=== PATIENT | male | born 1980 | race Caucasian/White ===

== ENCOUNTER → 2017-10-14 | Emergency (ER) | payer OTHER ==
[~2017-10-14] VITALS: Ht 172.7 cm; Wt 86.2 kg
[~2017-10-14] MED LIST: IBUPROFEN200 M1 PO; NAPROXEN250 MG PO; NORCO 5-325 TA1 EACH PO
--- OUTSIDE RECORDS SUMMARY | ~2017-10-14 | XMS | Clinical Summary ---
Demographics + + + | Address | [address] | | | [address] | | | [place] [address] | + + + | Home Phone | | + + + | Preferred Language | Unknown | + + + | Marital Status | Single | + + + | Presybeterian Affiliation | Unknown | + + + | Race | Unknown | + + + | Ethnic Group | Unknown | + + + Author + + + | Author | [facility] [facility] | + + + | Organization | [facility] [employer] [facility] | + + + | Address | Unknown | + + + | Phone | Unavailable | + + + Support + + +---------+ + | Name | Relationship | Address | Phone | + + +---------+ + | Almas Heller | ECON | Unknown | | + + +---------+ + Care Team Providers + +------+ + | Care Pharmaceutical Compounding Supervisor Name | Role | Phone | + [...]
--- OUTSIDE RECORDS SUMMARY | ~2017-10-14 | XMS | Clinical Summary ---
Demographics + + + | Address | [address] | | | [address] | | | [place] [address] | + + + | Home Phone | | + + + | Preferred Language | Unknown | + + + | Marital Status | Single | + + + | Episcopal Affiliation | Unknown | + + + | Race | Unknown | + + + | Ethnic Group | Unknown | + + + Author + + + | Author | [email or web address] [facility] | + + + | Organization | [email or web address] [facility] | + + + | Address | Unknown | + + + | Phone | Unavailable | + + + Support + + +---------+ + | Name | Relationship | Address | Phone | + + +---------+ + | Almas Heller | ECON | Unknown | | + + +---------+ + Care Team Providers + +------+ + | Care Shot Bagger Name | Role | Phone | + [...]
== END | disposition home or self-care (01) ==
LOC: ED 21:18
PROC: 2W3EX1Z Immobilization of Right Hand using Splint (ICD-10-PCS; principal; 2017-10-14)
DX: S62.314A Displaced fracture of base of fourth metacarpal bone, right hand, initial encounter for closed fracture (principal); F17.200 Nicotine dependence, unspecified, uncomplicated; Z87.81 Personal history of (healed) traumatic fracture; W20.8XXA Other cause of strike by thrown, projected or falling object, initial encounter; Y92.009 Unspecified place in unspecified non-institutional (private) residence as the place of occurrence of the external cause
CPT/HCPCS: 29125; 73130; 99283

== ENCOUNTER 2017-10-22 09:50 | Day surgery (SDC) | payer OTHER ==
[~2017-10-22] VITALS: Ht 182.9 cm; Wt 90.7 kg
--- NOTE | 2017-10-22 12:54 | NUR ---
10/22/17 1254 Marissa Ricci 1236 PT ARRIVED IN PACU SLEEPY WITH NO C/O'S. ICE TO TOP OF R HAND.
--- NOTE | 2017-10-22 13:31 | NUR ---
LE 1315: PT ARRIVE TO DS RM 5 VIA STRETCHER WITH EYES CLOSED. PT EASILY AROUSED WHEN SPOKEN TO AND DENIES AND NAUSEA OR PAIN. PT STATES "MY ARM AND HEAD FEEL REALLY HEAVY." PT TRYING TO MOVE RIGHT ARM AND ADVISED TO KEEP ARM STILL WITH ICE IN PLACE UNTIL BLOCK WEARS OFF. PT REQUESTS TO USE BR. PT AMBULATES WELL AND VOIDS 400 MLS DILUTE YELLOW URINE. PT BACK TO ROOM SITTING UPRIGHT, EATING PUDDING AND CRACKERS. PT SIG OTHER IN ROOM AT BEDSIDE. CALL LIGHT AT PT LEFT SIDE.
--- NOTE | 2017-10-22 14:33 | NUR ---
PT TO BR. VERY IN A HURRY KEPT SAYING COME ON COME ON WHEN DC INSTRUCTIONS BEING GIVEN. DIDNT WANT TO RIDE IN WC. DIDNT WANT TO WANT TILL S O PULLED CAR UP.
--- NOTE | 2017-10-22 16:02 | OR ---
[facility] [address] [place] [place] [address] Signed DATE OF OPERATION: 10/22/2017 SURGEON: Elieser De Oliveira MD PREOPERATIVE DIAGNOSIS: Fracture dislocation, right 4th and 5th proximal metacarpals. POSTOPERATIVE DIAGNOSIS: Fracture dislocation, right 4th and 5th proximal metacarpals. PROCEDURE PERFORMED: Closed reduction and percutaneous pinning, right 4th and 5th proximal metacarpals. DREDGE PIPEMAN: ANESTHESIA: General. BLOOD LOSS: Minimal. IMPLANTS: Two 1.6 K-wires and one 1.25 K-wire. BRIEF HISTORY: Joseph is a 37-year-old gentleman who apparently hit a wall with his fist, fractured dislocating his proximal metacarpals. He presented to clinic. We discussed options. Because of the instability, he could actually reduce and dislocate these things on command. We decided to proceed with closed reduction and percutaneous pinning. The risks, benefits, and alternatives were discussed at length and he understood and wished to proceed. DESCRIPTION OF PROCEDURE: Once consent was obtained, he was taken to the operating room. After adequate anesthesia, he was placed on the operating table. All downside pressure points well padded. The right arm was prepped and draped in a standard sterile fashion. The 4th and 5th metacarpals were easy to reduce and were held in position. A single 1.6 mm K-wire was passed from the distal 5th metacarpal engaging the body of the carpus. Second was placed in the 4th in a parallel fashion. The third 1.25 K-wire was then Electronically Signed By: ELIESER DE OLIVEIRA MD 10/22/17 1602 PATIENT NAME: JOSEPH FLOYD OPERATIVE REPORT DATE OF : 80 REPORT #: [id number] PHYSICIAN: ELIESER DE OLIVEIRA MD PCP: CANDE LESTER HYDRODYNAMICS TEACHER REPORT IS CONFIDENTIAL AND NOT TO BE RELEASED WITHOUT AUTHORIZATION [facility] [address] [facility] [place] [address] Signed placed laterally from the 5th metacarpal engaging in the body of the carpus. Excellent stability was obtained at the end. The pins were cut and bent and dressed with sterile gauze and cast padding. He was placed in an ulnar gutter splint. He tolerated the procedure well. All sponge, needle, and instrument counts were correct. Elieser De Oliveira MD BA/REGINA /[id number] Copies: ~ Electronically Signed By: ELIESER DE OLIVEIRA MD 10/22/17 1602 PATIENT NAME: JOSEPH FLOYD OPERATIVE REPORT DATE OF : 80 REPORT #: [id number] PHYSICIAN: ELIESER DE OLIVEIRA MD PCP: CANDE LESTER REPORT IS CONFIDENTIAL AND NOT TO BE RELEASED WITHOUT AUTHORIZATION
--- NOTE | 2017-10-22 16:02 | OR ---
[facility] [address] [place] [address] Signed DATE OF OPERATION: 10/22/2017 SURGEON: Elieser De Oliveira MD PREOPERATIVE DIAGNOSIS: Fracture dislocation, right 4th and 5th proximal metacarpal. POSTOPERATIVE DIAGNOSIS: Fracture dislocation, right 4th and 5th proximal metacarpal. PROCEDURE PERFORMED: Closed reduction and percutaneous pinning, right 4th and 5th metacarpals. SALES TRADER: AVINASH Polanco. DICTATION ENDS HERE. Elieser De Oliveira MD BA/EMILIANOL /[id number] Copies: ~ Electronically Signed By: ELIESER DE OLIVEIRA MD 10/22/17 1602 PATIENT NAME: JAMAAL FLOYD OPERATIVE REPORT DATE OF : 80 REPORT #: [id number] PHYSICIAN: ELIESER DE OLIVEIRA MD PCP: CANDE LESTER REPORT IS CONFIDENTIAL AND NOT TO BE RELEASED WITHOUT AUTHORIZATION
== END 2017-10-22 18:00 | disposition home or self-care (01) ==
LOC: DS 09:50 → OPS 09:50 → DS 11:15 → OPS 18:00
PROVIDERS: Specialist
PROC: 0PSP34Z Reposition Right Metacarpal with Internal Fixation Device, Percutaneous Approach (ICD-10-PCS; 2017-10-22)
PROC: 0PSP34Z Reposition Right Metacarpal with Internal Fixation Device, Percutaneous Approach (ICD-10-PCS; principal; 2017-10-22 11:15)
DX: S62.314A Displaced fracture of base of fourth metacarpal bone, right hand, initial encounter for closed fracture (principal); S62.316A Displaced fracture of base of fifth metacarpal bone, right hand, initial encounter for closed fracture; F17.200 Nicotine dependence, unspecified, uncomplicated
CPT/HCPCS: 01830; 64417; 73120; 76942; J0690; J1100; J1885; J2250; J2405; J2704; J2795; J3475; J7120

== ENCOUNTER 2019-06-05 06:38 | Emergency (ER) | payer SELFPAY ==
[~2019-06-05] VITALS: Ht 185.4 cm; Wt 90.7 kg
--- OUTSIDE RECORDS SUMMARY | ~2019-06-05 | XMS | Clinical Summary ---
Demographics + + + | Address | [address] | | | [address] | | | [place] [address] | + + + | Home Phone | | + + + | Preferred Language | Unknown | + + + | Marital Status | Single | + + + | Hindu Affiliation | Unknown | + + + | Race | Unknown | + + + | Ethnic Group | Unknown | + + + Author + + + | Author | [facility] (Historical as of | | | 02-01-19) | + + + | Organization | [facility] (Historical as of | | | 02-01-19) | + + + | Address | Unknown | + + + | Phone | Unavailable | + + + Support + + +---------+ + | Name | Relationship | Address | Phone | + + +---------+ + | Almas Heller | ECON | Unknown | | + + +---------+ + Care Team Providers + +------+ + | Care Manager Agency Name | Role | Phone | + +------+ + | Blake Martinez MD | PP | | + +------+ + Allergies Not on File Current Medications Not on file Active Problems Not on file Social History + +-------+ +--------+------+ | Tobacco Use | Types | Packs/Day | Years | Date | | | | | Used | | + +-------+ +--------+------+ | Never Assessed | | | | | + +-------+ +--------+------+ + + + | Sex Assigned at | Date Recorded | | | | + + + | Not on file | | + + + Plan of Treatment Not on file Results Not on filefrom Last 3 Months"
--- OUTSIDE RECORDS SUMMARY | ~2019-06-05 | XMS | Clinical Summary ---
Demographics + + + | Address | [address] | | | [address] | | | [place] [address] | + + + | Home Phone | | + + + | Preferred Language | Unknown | + + + | Marital Status | Single | + + + | Pentecostal Affiliation | Unknown | + + + | Race | Unknown | + + + | Ethnic Group | Unknown | + + + Author + + + | Author | [facility] (Historical as of | | | 02-01-19) | + + + | Organization | [facility] (Historical as of | | | 02-01-19) [...] Team Providers + +------+ + | Care Crisis Intervention Specialist Name | Role | Phone | + [...]
--- OUTSIDE RECORDS SUMMARY | ~2019-06-05 | XMS | Clinical Summary ---
Demographics + + + | Address | [address] | | | [address] | | | [place] [address] | + + + | Home Phone | | + + + | Preferred Language | Unknown | + + + | Marital Status | Single | + + + | Latter-Day Affiliation | Unknown | + + + | Race | Unknown | + + + | Ethnic Group | Unknown | + + + Author + + + | Author | [facility] | | | and [place] | + + + | Organization | [facility] | | | and [place] | + + + | Address | Unknown | + + + | Phone | Unavailable | + + + Support + + +---------+ + | Name | Relationship | Address | Phone | + + +---------+ + | Almas Heller | ECON | Unknown | | + + +---------+ + Care Team Providers + +------+ + | Care Coat Room Attendant Name | Role | Phone | + +------+ + | Blake Martinez MD | PCP | | + +------+ + Allergies Not on File Medications Not on file Active Problems Not [...] on file | | + + + + + + + | Job Start Date | Occupation | Industry | + + + + | Not on file | Not on file | Not on file | + + + + + + + + | Travel History | Travel Start | Travel End | + + + + + + | No recent travel history available. | + + Last Filed Vital Signs Not on file Plan of Treatment + + + + + | Health Maintenance | Due Date | Last Done | Comments | + + + + + | Vaccine: | | | | | Dtap/Tdap/Td (1 - | 0 | | | | Tdap) | | | | + + + + + | Vaccine: Influenza | | | | | (#1) | 9 | | | + + + + + Results Not on filefrom Last 3 Months"
--- OUTSIDE RECORDS SUMMARY | ~2019-06-05 | XMS | Clinical Summary ---
Demographics + + + | Address | [address] | | | [address] | | | [place] [address] | + + + | Home Phone | | + + + | Preferred Language | Unknown | + + + | Marital Status | Single | + + + | Uatsdin Affiliation | Unknown | + + + | Race | Unknown | + + + | Ethnic Group | Unknown | + + + Author + + + | Author | [facility] | | | and [place] | + + + | Organization | [facility] | | | and [...] Team Providers + +------+ + | Care Tie Man Name | Role | Phone | + [...]
--- OUTSIDE RECORDS SUMMARY | ~2019-06-05 | XMS | Encounter Summary ---
Demographics + + + | Address | [address] | | | [address] | | | [place] [address] | + + + | Home Phone | | + + + | Preferred Language | Unknown | + + + | Marital Status | Single | + + + | Denominational Affiliation | Unknown | + + + | Race | Unknown | + + + | Ethnic Group | Unknown | + + + Author + + + | Author | [facility] | | | and [place] | + + + | Organization | [facility] | | | and [...] Team Providers + +------+ + | Care Cutting Machine Operator Name | Role | Phone | + +------+ + PCP | Unavailable | + +------+ + Encounter Details +--------+ + + + + | Date | Type | Department | Care Team | Description | +--------+ + + + + | 12/03/ | Hospital | [facility] GENERIC IP | Carlos Garrido MD | OTHER GENERAL | | 2010 - | Encounter | [address]VERSION [address] | [address] | SYMPTOMS; Fracture | | | | [address] | [place], [place] | of corpus cavernosum | | 12/04/ | | [place], [place] | [address] | penis; Tobacco use | | 2010 | | [phone] | | disorder; Open wound | | | | [phone] | | of penis | +--------+ + + + + Social History + +-------+ +--------+------+ | Tobacco [...] recent travel history available. | + + documented as of this encounter Plan of Treatment Not on filedocumented as of this encounter Visit Diagnoses + + | Diagnosis | + + | Other general symptoms(780.99) Other general symptoms | + + | Fracture of corpus cavernosum penis | + + | Tobacco use disorder | + + | Open wound of penis Open wound of penis, without mention of complication | + + documented in this encounter"
--- OUTSIDE RECORDS SUMMARY | ~2019-06-05 | XMS | Encounter Summary ---
Demographics + + + | Address | [address] | | | [address] | | | [place] [address] | + + + | Home Phone | | + + + | Preferred Language | Unknown | + + + | Marital Status | Single | + + + | Alevism Affiliation | Unknown | + + + | Race | Unknown | + + + | Ethnic Group | Unknown | + + + Author + + + | Author | [facility] | | | and [place] | + + + | Organization | [facility] | | | and [...] Team Providers + +------+ + | Care Street Worker Name | Role | Phone | + +------+ + PCP | Unavailable | + +------+ + Encounter Details +--------+ + + + + | Date | Type | Department | Care Team | Description | +--------+ + + + + | 12/03/ | Hospital | [facility] GENERIC IP | Carlos Garrido MD | OTHER GENERAL | | 2010 - | Encounter | [address]VERSION [address] | [address] | SYMPTOMS; Fracture | | | | [address] | [place], [place] | of corpus cavernosum | | 12/04/ | | [place], [place] | [address] | penis; Tobacco use | | 2010 | | [phone] | | disorder; Open wound | | | | [phone] | | of penis | +--------+ + [...]
== END 2019-06-05 07:40 | disposition home or self-care (01) ==
LOC: ED 06:38
DX: S93.401A Sprain of unspecified ligament of right ankle, initial encounter (principal); F17.200 Nicotine dependence, unspecified, uncomplicated; W01.0XXA Fall on same level from slipping, tripping and stumbling without subsequent striking against object, initial encounter
CPT/HCPCS: 73610; 99283-25

== ENCOUNTER 2019-12-04 15:10 | Emergency (ER) | payer OTHER ==
[~2019-12-04] VITALS: Ht 182.9 cm; Wt 90.7 kg
[2019-12-04] MEDS ORDERED: GENTAMICIN SULFA5 ML OD (15:43)
== END 2019-12-04 15:52 | disposition home or self-care (01) ==
LOC: ED 15:10
DX: H10.89 Other conjunctivitis (principal); F17.200 Nicotine dependence, unspecified, uncomplicated; W22.8XXA Striking against or struck by other objects, initial encounter
CPT/HCPCS: 99283